=== PATIENT | male | born 1990 | race Caucasian/White ===

== ENCOUNTER → 2019-12-13 | Outpatient (CLI) | payer BC ==
--- NOTE | 2019-12-14 09:35 | REP ---
KUB: REASON: Abdominal pain with nausea and vomiting. PRIORS: None. FINDINGS: KUB shows the intestinal gas pattern to be nonspecific. The organ silhouettes insofar as delineated are unremarkable. There is no evidence of free intraperitoneal air. IMPRESSION: Nonspecific. The stool pattern appears to be within normal limits. Electronically Signed by Johan Barnes DO 12/15/2019 08:28 A
== END ==
LOC: M WUC 11:51
PROVIDERS: ATTEND Nurse Practitioner Family
DX: R10.84 Generalized abdominal pain (principal); R11.2 Nausea with vomiting, unspecified

== ENCOUNTER → 2020-06-08 | Outpatient (CLI) | payer SELFPAY | LOC: M LABSMTC 10:17 | PROVIDERS: ATTEND Pediatrics | DX: Z20.828 Contact with and (suspected) exposure to other viral communicable diseases (principal) ==

== ENCOUNTER → 2021-07-07 | Outpatient (REF) | LOC: M LABSMTC 11:30 | PROVIDERS: ATTEND Family Medicine | DX: Z20.822 Contact with and (suspected) exposure to COVID-19 (principal) ==

== ENCOUNTER → 2021-07-09 | Outpatient (REF) | LOC: M LABSMTC 11:36 | PROVIDERS: ATTEND Family Medicine | DX: Z11.52 Encounter for screening for COVID-19 (principal) ==

== ENCOUNTER → 2022-02-18 | Outpatient (REF) | LOC: M EMP 11:59 | PROVIDERS: ATTEND Family Medicine | DX: Z11.52 Encounter for screening for COVID-19 (principal) ==

== ENCOUNTER → 2022-03-20 | Outpatient (REF) | LOC: M LABSMTC 11:10 | PROVIDERS: ATTEND Family Medicine | DX: Z11.52 Encounter for screening for COVID-19 (principal) ==

== ENCOUNTER → 2022-08-16 | Outpatient (CLI) | payer BC | LOC: M WUC 10:58 | PROVIDERS: ATTEND Physician Assistant | DX: S63.511A Sprain of carpal joint of right wrist, initial encounter (principal) ==

== ENCOUNTER → 2022-08-16 | Outpatient (CLI) | payer BC | LOC: M WUC 10:49 | PROVIDERS: ATTEND Physician Assistant | DX: S63.511A Sprain of carpal joint of right wrist, initial encounter (principal) ==

== ENCOUNTER 2022-08-31 12:41 | Outpatient (RCR) | payer BC | END 2022-09-02 | LOC: M OT 12:41 | PROVIDERS: ATTEND Orthopaedic Surgery | DX: M65.4 Radial styloid tenosynovitis [de Quervain] (principal) ==

== ENCOUNTER 2022-09-28 11:13 | Outpatient (RCR) | payer BC | END 2022-10-02 | LOC: M OT 11:13 | PROVIDERS: ATTEND Orthopaedic Surgery | DX: M65.4 Radial styloid tenosynovitis [de Quervain] (principal) ==

== ENCOUNTER → 2023-02-14 | Outpatient (REF) | LOC: M EMP 11:00 | PROVIDERS: ATTEND Family Medicine | DX: Z11.52 Encounter for screening for COVID-19 (principal) ==

== ENCOUNTER → 2023-05-22 | Outpatient (REF) ==
[2023-05-22 15:20] LABS: RSV AMPLIFICATION NEGATIVE (NEGATIVE)
== END ==
LOC: M EMP 14:04
PROVIDERS: ATTEND Family Medicine
DX: Z11.52 Encounter for screening for COVID-19 (principal)

== ENCOUNTER → 2023-06-09 | Outpatient (REF) | LOC: M EMP 12:33 | PROVIDERS: ATTEND Family Medicine | DX: Z11.52 Encounter for screening for COVID-19 (principal) ==

== ENCOUNTER → 2023-06-13 | Outpatient (REF) | LOC: M EMP 09:47 | PROVIDERS: ATTEND Family Medicine | DX: Z11.52 Encounter for screening for COVID-19 (principal) ==

== ENCOUNTER → 2023-07-12 | Outpatient (REF) | LOC: M EMP 13:45 | PROVIDERS: ATTEND Family Medicine | DX: Z11.52 Encounter for screening for COVID-19 (principal); Z53.9 Procedure and treatment not carried out, unspecified reason ==

== ENCOUNTER → 2023-07-12 | Outpatient (REF) | LOC: M EMP 13:40 | PROVIDERS: ATTEND Family Medicine | DX: Z11.52 Encounter for screening for COVID-19 (principal) ==

== ENCOUNTER → 2023-10-12 | Outpatient (REF) | LOC: M EMP 10:13 | PROVIDERS: ATTEND Family Medicine | DX: Z20.822 Contact with and (suspected) exposure to COVID-19 (principal) ==

== ENCOUNTER 2023-12-09 00:26 | Emergency (ER) | payer BC ==
[~2023-12-09] VITALS: Ht 185.4 cm; Wt 106.3 kg
[2023-12-09] MEDS ORDERED: LATANOPROST (00:35)
[2023-12-09] MEDS ORDERED: TIMO0.5S20 (00:35)
[2023-12-09] MEDS ORDERED: COLDLIQ8 PO (00:35)
[2023-12-09 01:57] LABS: BASO % 0.5 % (0.0-1.0); HEMATOCRIT 45.7 % (42.0-52.0); HEMOGLOBIN 15.4 g/dl (13.5-17.5); LYMPH # 0.9 10^3/uL (1.5-5.0); LYMPH % 14.1 % (24.0-44.0); MEAN CORPUSCULAR HGB CONC 33.7 g/dl (32.0-36.5); MEAN CORPUSCULAR VOLUME 88.9 fl (80.0-96.0); MONO # 0.9 10^3/uL (0.0-0.8); MONO % 13.9 % (2.0-8.0); NEUTROPHILS # 4.5 10^3/uL (1.5-8.5); NEUTROPHILS % 71.2 % (36.0-66.0); PLATELET COUNT, AUTOMATED 221 10^3/uL (150-450); RED BLOOD COUNT 5.14 10^6/uL (4.30-6.10); WHITE BLOOD COUNT 6.4 10^3/uL (4.0-10.0)
[2023-12-09 02:18] LABS: ALBUMIN 4.1 G/DL (3.2-5.2); ALKALINE PHOSPHATASE 99 U/L (46-116); ALT/SGPT 18 U/L (7.0-40); AST/SGOT 18 U/L (<34); BILIRUBIN,DIRECT 0.3 MG/DL (<0.4); BILIRUBIN,TOTAL 0.9 MG/DL (0.3-1.2); BLOOD UREA NITROGEN 15 MG/DL (9-23); CALCIUM LEVEL 8.8 MG/DL (8.5-10.1); CARBON DIOXIDE LEVEL 25 MMOL/L (20-31); CHLORIDE LEVEL 107 MMOL/L (98-107); CREATININE FOR GFR 0.78 MG/DL (0.70-1.30); GLOMERULAR FILTRATION RATE > 60.0 (>60); GLUCOSE, FASTING 118 MG/DL (60-100); POTASSIUM SERUM 3.5 MMOL/L (3.5-5.1); SODIUM LEVEL 139 MMOL/L (136-145); TOTAL PROTEIN 6.8 G/DL (5.7-8.2)
[2023-12-09] MEDS: ACETAMINOPHEN TAB 650MG DOSE (2X325MG) PO ONE (03:06)
[2023-12-09] MEDS: NS 1,000 ML IV SCH (03:08)
[2023-12-09 03:56] VITALS: BP 115/68; TEMP 97.5; O2SAT 98
== END 2023-12-09 03:58 | disposition home or self-care (01) ==
LOC: M ED 00:26
DX: R50.9 Fever, unspecified (principal); B34.8 Other viral infections of unspecified site; H40.9 Unspecified glaucoma; Z79.899 Other long term (current) drug therapy